=== PATIENT | female | born 1950 | race Caucasian/White ===

== ENCOUNTER 2017-02-19 18:59 | Inpatient (IN) | payer OTHER ==
[2017-02-19 20:29] LABS: Troponin I Less than 0.010 ng/mL (< 0.028)
--- NOTE | 2017-02-19 22:04 | CT ---
CT OF THE BRAIN WITHOUT CONTRAST: 02/19/17 COMPARISON: None. HISTORY: High blood pressure and headache. TECHNIQUE: Multiple contiguous axial images were obtained in a CT of the brain without contrast. FINDINGS: The brain is normal in morphology and attenuation without focal lesions or confluent areas of infarc tion. There is no evidence of hydrocephalus, intracranial hemorrhage, or extra-axial fluid collectio n. The calvarium and overlying soft tissues are unremarkable. The visualized paranasal sinuses and mast oid air cells are well aerated. IMPRESSION: No evidence of acute intracranial abnormality. POS: [facility]
[2017-02-19] MEDS ORDERED: diphenhydrAMINE HCl 50 MG/ML 1 ML VIAL ONE ×2 (22:10→22:23)
[2017-02-19] MEDS ORDERED: Acetaminophen 500 MG TAB ONE ×2 (22:10→22:12)
[2017-02-19] MEDS ORDERED: Ketorolac Tromethamine 30 MG/ML VIAL ONE (22:10)
[2017-02-19] MEDS ORDERED: methylPREDNISolone Sod Succ/PF 125 MG/2 ML VIAL ONE ×2 (22:10→22:23)
[2017-02-19] MEDS ORDERED: Promethazine HCl 25 MG/ML VIAL ONE (22:23)
[2017-02-19] MEDS ORDERED: Labetalol HCl 100 MG/20 ML VIAL ONE (23:24)
[2017-02-20] MEDS ORDERED: Magnesium Sulfate 2 GM/100 ML BAG ONE (01:12)
[2017-02-20 01:32] LABS: Troponin I Less than 0.010 ng/mL (< 0.028)
[2017-02-20] MEDS ORDERED: Ondansetron ODT 4 MG TAB SL PRN (01:49)
[2017-02-20] MEDS ORDERED: Acetaminophen 325 MG TAB PO PRN (01:49)
[2017-02-20] MEDS ORDERED: Ondansetron HCl/PF 4 MG/2 ML Vial IVP PRN (01:49)
[2017-02-20] MEDS ORDERED: Guaifenesin DM 100-10/5 ML UDCUP PO PRN (02:36)
[2017-02-20] MEDS ORDERED: Dextrose 5% in Water 1,000 ML IV PRN (02:36)
[2017-02-20] MEDS ORDERED: Dextrose 50% Abboject 50 ML SYRINGE SLOW IVP PRN (02:36)
[2017-02-20] MEDS ORDERED: Sodium Chloride 0.9% 1,000 ML IV SCH (02:36)
[2017-02-20] MEDS ORDERED: Aspirin 325 MG TAB PO SCH (02:45)
[2017-02-20 03:11] VITALS: BMI 25.3
--- NOTE | 2017-02-20 04:50 | PDOC.EVN ---
Event Note - Event Note Event Note: Pt has hypertensive urgency with recordings of 190/110 at 4.45am. Change status to inpatient. Hold stress test until htn is better controlled. Continue all the medications that are ordered for now.
[2017-02-20 04:59] LABS: #Lymphocytes 0.7 thou/uL (1.20-3.40); #Neutrophils 5.8 thou/uL (1.40-6.50); %Basophils 0.2 % (0.0-1.0); %Eosinophils 0.5 % (0.0-10.0); %Lymphocytes 10.3 % (21.0-51.0); %Monocytes 0.5 % (0.0-10.0); White Blood Cell (WBC) Count 6.5 thou/uL (4.8-10.8)
[2017-02-20] MEDS: HumaLOG 300 UNITS/3 ML VIAL SC PRN ×4 (04:59→20:46)
--- NOTE | 2017-02-20 05:15 | HP ---
REASON FOR ADMISSION: Chest pain, uncontrolled hypertension. HISTORY OF PRESENT ILLNESS: The patient gives history of having difficulty controlling her blood pressure from the last 2 months. Her medications were doubled a week and a half back. She also developed right-sided chest pain with radiation to the retrosternal area around 3:00 p.m. yesterday. She called her doctor's office and was asked to go to the emergency room. The patient has had a prior stress test done in 1991, which was negative as far she could remember. She has dry cough, but no expectoration. No complaints of fever, palpitations , PND or orthopnea. PAST MEDICAL/SURGICAL HISTORY: History of hypertension, diabetes mellitus type 2, hysterectomy, bladder lift surgery, dyslipidemia. CURRENT MEDICATIONS: Metoprolol 50 mg twice daily, lisinopril 40 mg twice daily , metformin 500 mg p.o. twice daily. ALLERGIES: CODEINE and PENICILLIN. PERSONAL HISTORY: Smokes half pack a day, does not abuse alcohol or drugs. FAMILY HISTORY: Mother at the age of 78 years. She has had history of stroke and colon cancer. Father in his 90s and had history of COPD and coronary artery disease. REVIEW OF SYSTEMS: The following complete review of systems was negative, unless otherwise mentioned in the HPI or below: Constitutional: Weight loss or gain, ability to conduct usual activities. Skin: Rash, itching. Eyes: Double vision, pain. ENT/Mouth: Nose bleeding, neck stiffness, pain, tenderness. Cardiovascular: Palpitations, dyspnea on exertion, orthopnea. Respiratory: Shortness of breath, wheezing, cough, hemoptysis, fever or night sweats. Gastrointestinal: Poor appetite, abdominal pain, heartburn, nausea, vomiting, constipation, or diarrhea. Genitourinary: Urgency, frequency, dysuria, nocturia. Musculoskeletal: Pain, swelling. Neurologic/Psychiatric: Anxiety, depression. Allergy/Immunologic: Skin rash, bleeding tendency. PHYSICAL EXAMINATION: GENERAL: The patient is a 66-year-old female who is currently not in any acute distress. VITAL SIGNS: Blood pressure 176/74, pulse 66 per minute, respiratory rate 18 per minute, temperature 98 degrees Fahrenheit, saturating 93% on room air. NECK: Supple, no elevated JVD. HEENT: Eyes; extraocular muscles intact. Pupils reacting to light. Oral cavity; mucous membranes are moist. No exudates or congestion. CARDIOVASCULAR: S1, S2 heard. Regular rhythm. RESPIRATORY: Air entry 2+ bilateral. No rales or rhonchi. ABDOMEN: Soft, bowel sounds heard. No tenderness, rigidity or guarding. EXTREMITIES: No peripheral edema or calf tenderness. VASCULAR SYSTEM: Peripheral pulses 2+ bilateral, no ischemic ulcerations or gangrene. CENTRAL NERVOUS SYSTEM: No gross focal deficits seen. Patient is alert, awake , oriented x3. PSYCHIATRIC: The patient's mood is euthymic. No hallucinations or delusions. LABORATORY AND X-RAY FINDINGS: EKG done shows normal sinus rhythm at 61 beats per minute, H\T\H 13 and 39, platelet count 300, MCV is 88. White count of 8. Electrolytes are stable. BUN 20, creatinine 1.0. Glucose 177. Troponin x2 is negative. CK-MB 2.7. BNP is 38. CT brain shows no acute intracranial abnormality. Chest x-ray done shows no acute cardiopulmonary abnormalities. CLINICAL IMPRESSION AND PLAN: The patient will be under observation on telemetry for uncontrolled hypertension with chest pain. We will try to optimize her blood pressure medications. We will continue her lisinopril at 20 mg twice daily, Lopressor 25 mg twice daily, Procardia-XL 60 mg daily. She will also be on nitro paste half inch q.8 hourly. The patient will follow ACS evidence based protocol. We will obtain an echo with 2D Doppler for LV function. We will also obtain ultrasound of the kidneys to rule out renal artery stenosis with resistive indices. We will continue to closely monitor her on telemetry. If the patient's blood pressure were not be controlled, then she will be switched over to inpatient status. We will continue to closely monitor her. MICAELA
[2017-02-20 05:16] LABS: Anion Gap 12 mmol/L (10-20); BUN (Urea Nitrogen) 15 mg/dL (9.8-20.1); Calc. Creatinine Clearance 78 mL/min (70-130); Calcium 9.7 mg/dL (7.8-10.44); Carbon Dioxide 25 mmol/L (23-31); Chloride 108 mmol/L (98-107); Cholesterol 206 mg/dl (< 200 Desired); Estimated GFR-MDRD 72; LDL Cholesterol, Calculated 139 mg/dL
[2017-02-20] MEDS ORDERED: Nitroglycerin 2% Ointment 1 INCH/1 GM Packet TOP SCH (06:00)
[2017-02-20 07:47] LABS: Hemoglobin A1c 7.8 % (4.0-6.0)
[2017-02-20] MEDS: Famotidine 20 MG TAB PO SCH ×2 (09:18→20:44)
[2017-02-20] MEDS: Aspirin 325 MG TAB PO SCH (09:18)
[2017-02-20] MEDS: Docusate 100 MG CAP PO SCH ×2 (09:18→20:45)
[2017-02-20] MEDS: Lisinopril 20 MG TAB PO SCH ×2 (09:19→20:44)
[2017-02-20] MEDS: Pravastatin Sodium 20 MG TAB PO SCH (09:19)
[2017-02-20] MEDS: Metoprolol Tartrate 25 MG TAB PO SCH ×2 (09:19→20:44)
[2017-02-20] MEDS: NIFEdipine XL 60 MG TAB PO SCH (09:19)
[2017-02-20] MEDS: Enoxaparin Sodium 40 MG/0.4 ML SYRINGE SC SCH (09:20)
[2017-02-20] MEDS: Acetaminophen 325 MG TAB PO PRN ×2 (09:30→14:43)
--- NOTE | 2017-02-20 11:00 | ULT ---
RENAL ULTRASOUND: 02/20/2017 HISTORY: Hypotension. TECHNIQUE: Multiple longitudinal and transverse images of the kidneys and bladder are obtained using a Multi-He rtz curvilinear transducer. Real-time, color-flow, and spectral wave-form Doppler analysis is used to evaluate the kidneys. FINDINGS: The right kidney measures 10.7 and the left kidney 11.6 cm, from pole to pole. No evidence of renal parenchymal mass is seen. There is a cortical cyst seen in the mid pole of the right kidney, measu ring 10 x 8 mm. No other renal or parenchymal masses or lesions seen. Spectral wave-form Doppler a nalysis evaluation of the right and left renal arteries demonstrate a resistive index of 0.65 in the right kidney and 0.5 in the left. No definite evidence of renal artery stenosis seen. The bladder is unremarkable. IMPRESSION: Small cortical cyst, mid pole, right kidney. Otherwise, unremarkable renal ultrasound. No evidence of renal artery stenosis seen on sonography. POS: [facility]
--- NOTE | 2017-02-20 11:21 | PDOC.PN ---
- Subjective Encounter Start Date: 02/20/17 Encounter Start Time: 11:19 Subjective: feels better but still on and off FOX and Chest discomfort w high BP - Objective Resuscitation Status: Resuscitation Status FULL:Full Resuscitation MAR Reviewed: Yes Vital Signs & Weight: Vital Signs (12 hours) Temp Pulse Resp BP BP Pulse Ox 02/20/17 08:00 97.7 F 82 16 178/81 H 95 02/20/17 06:45 77 173/76 H 02/20/17 04:40 98.2 F 79 16 196/110 H 95 02/20/17 01:45 98.1 F 70 18 179/90 H 95 Weight Weight 152 lb 8 oz I&O: 02/19/17 02/20/17 02/21/17 06:59 06:59 06:59 Intake Total 300 360 Balance 300 360 Result Diagrams: 02/20/17 04:44 02/20/17 04:43 Additional Labs: Accuchecks 02/20/17 04:43 POC Glucose 238 H Laboratory Tests 02/20/17 04:44 Hemoglobin A1c 7.8 H Laboratory Tests 02/19/17 02/19/17 02/20/17 17:12 19:58 00:51 Troponin I 0.015 Less than 0.010 Less than 0.010 Triglycerides Cholesterol LDL Cholesterol, Calc HDL Cholesterol 02/20/17 04:43 Troponin I Triglycerides 78 Cholesterol 206 H LDL Cholesterol, Calc 139 HDL Cholesterol 51 Radiology Reviewed by me: Yes (renal US- NL.no CITLALI) Phys Exam - Physical Examination Constitutional: NAD HEENT: PERRLA, moist MMs, sclera anicteric, oral pharynx no lesions Neck: no nodes, no JVD, supple, full ROM Respiratory: no wheezing, no rales, no rhonchi, clear to auscultation bilateral Cardiovascular: RRR, no significant murmur, no rub, gallop Gastrointestinal: soft, non-tender, no distention, positive bowel sounds Musculoskeletal: no edema, pulses present Neurological: non-focal, normal sensation, moves all 4 limbs Psychiatric: normal affect, A&O x 3 Skin: no rash Dx/Plan (1) Hypertensive urgency Code(s): I16.0 - HYPERTENSIVE URGENCY Status: Acute (2) Chest pain Code(s): R07.9 - CHEST PAIN, UNSPECIFIED Status: Resolved (3) DMII (diabetes mellitus, type 2) Status: Chronic Qualifiers: Diabetes mellitus complication status: with hyperglycemia (4) HLD (hyperlipidemia) Code(s): E78.5 - HYPERLIPIDEMIA, UNSPECIFIED Status: Chronic - Plan out of bed/ambulate, DVT proph w/SCDs BP better controlled. renal US without Citlali.ECHO pending. -: adjust med .DC IVF.start Diet. -: CP likley d/t uncontrolled HTN. Troponin negative X3. -: cont. ISS.Titrate Nitro patch off & monitor. -: If CP returns,will do stress test tomorrow.AM labs * . Review of Systems - Review of Systems Constitutional: Malaise, Other (headache) Respiratory: negative: Cough, Dry, Shortness of Breath, Hemoptysis, SOB with Excertion, Pleuritic Pain, Sputum, Wheezing Cardiovascular: negative: Chest Pain, Palpitations, Orthopnea, Paroxysmal Noc. Dyspnea, Edema, Light Headedness, Other Gastrointestinal: negative: Nausea, Vomiting, Abdominal Pain, Diarrhea, Constipation, Melena, Hematochezia, Other Genitourinary: negative: Dysuria, Frequency, Incontinence, Hematuria, Retention , Other Musculoskeletal: negative: Neck Pain, Shoulder Pain, Arm Pain, Back Pain, Hand Pain, Leg Pain, Foot Pain, Other Neurological: negative: Weakness, Numbness, Incoordination, Change in Speech, Confusion, Seizures, Other - Medications/Allergies Allergies/Adverse Reactions: Allergies Allergy/AdvReac Type Severity Reaction Status Date / Time codeine Allergy Verified 02/20/17 02:18 Penicillins Allergy Verified 02/20/17 02:18 Medications: Current Medications Acetaminophen (Tylenol) 650 mg PO Q4H PRN PRN Reason: Headache/Fever or Pain Last Admin: 02/20/17 09:30 Dose: 650 mg Aspirin (Aspirin) 325 mg PO QAM-[facility] Last Admin: 02/20/17 09:18 Dose: 325 mg Dextrose/Water (Dextrose 50%) 25 gm SLOW IVP PRN PRN PRN Reason: Hypoglycemia Docusate Sodium (Colace) 100 mg PO BID [facility] Last Admin: 02/20/17 09:18 Dose: 100 mg Enoxaparin Sodium (Lovenox) 40 mg SC 0900 [facility] Last Admin: 02/20/17 09:20 Dose: Not Given Famotidine (Pepcid) 20 mg PO BID [facility] Last Admin: 02/20/17 09:18 Dose: 20 mg Glucagon (Glucagon) 1 mg IM PRN PRN PRN Reason: Hypoglycemia Guaifenesin/Dextromethorphan (Robitussin Dm) 15 ml PO Q4H PRN PRN Reason: Cough Dextrose/Water (D5w) 1,000 mls @ 0 mls/hr IV .Q0M PRN; As Directed PRN Reason: Hypoglycemia Insulin Human Lispro (Humalog) 0 units SC .MODERATE SLIDING SC PRN PRN Reason: Moderate Correctional Scale Last Admin: 02/20/17 04:59 Dose: 4 unit Lisinopril (Zestril) 20 mg PO BID [facility] Last Admin: 02/20/17 09:19 Dose: 20 mg Metoprolol Tartrate (Lopressor) 25 mg PO BID [facility] Last Admin: 02/20/17 09:19 Dose: 25 mg Nifedipine (Procardia Xl) 60 mg PO DAILY [facility] Last Admin: 02/20/17 09:19 Dose: 60 mg Nitroglycerin (Nitro-Bid 2% Ointment) 0.5 inch TOP Q8HR [facility] Last Admin: 02/20/17 05:04 Dose: 0.5 inch Pneumococcal Polyvalent Vaccine (Pneumovax 23) 0.5 ml IM .ONCE ONE Stop: 02/21/17 09:01 Pravastatin Sodium (Pravachol) 20 mg PO DAILY [facility] Last Admin: 02/20/17 09:19 Dose: 20 mg
[2017-02-21] MEDS ORDERED: Sodium Chloride 0.9% 10 ML ONE (08:07)
[2017-02-21] MEDS: Docusate 100 MG CAP PO SCH (09:09)
[2017-02-21] MEDS: Aspirin 325 MG TAB PO SCH (09:09)
[2017-02-21] MEDS: Pravastatin Sodium 20 MG TAB PO SCH (09:09)
[2017-02-21] MEDS: Lisinopril 20 MG TAB PO SCH (09:09)
[2017-02-21] MEDS: Acetaminophen 325 MG TAB PO PRN (09:10)
[2017-02-21] MEDS: Metoprolol Tartrate 25 MG TAB PO SCH (09:10)
[2017-02-21] MEDS: Famotidine 20 MG TAB PO SCH (09:10)
[2017-02-21] MEDS: NIFEdipine XL 60 MG TAB PO SCH (09:10)
[2017-02-21] MEDS: Enoxaparin Sodium 40 MG/0.4 ML SYRINGE SC SCH (09:11)
--- NOTE | 2017-02-21 11:26 | PDOC.PN ---
- Subjective Encounter Start Date: 02/21/17 Encounter Start Time: 11:24 Subjective: feels better but still some headache.eager to go home -: no chest pain/SOB.no N/V - Objective Resuscitation Status: Resuscitation Status FULL:Full Resuscitation MAR Reviewed: Yes Vital Signs & Weight: Vital Signs (12 hours) Temp Pulse Resp BP BP Pulse Ox 02/21/17 09:10 64 178/74 H 02/21/17 09:09 178/74 H 02/21/17 07:50 97.2 F L 64 18 178/74 H 97 02/21/17 04:00 98.2 F 63 18 141/66 H 98 Weight Weight 185 lb 12.8 oz I&O: 02/20/17 02/21/17 02/22/17 06:59 06:59 06:59 Intake Total 300 2300 Output Total 2400 Balance 300 -100 Result Diagrams: 02/20/17 04:44 02/20/17 04:43 Additional Labs: Accuchecks 02/21/17 02/20/17 02/20/17 05:51 20:20 17:31 POC Glucose 119 H 270 H 210 H 02/20/17 11:07 POC Glucose 240 H Radiology Reviewed by me: Yes Phys Exam - Physical Examination Constitutional: NAD HEENT: PERRLA, moist MMs, TM's clear, oral pharynx no lesions Neck: no nodes, no JVD, supple, full ROM Respiratory: no wheezing, no rales, no rhonchi, clear to auscultation bilateral Cardiovascular: RRR, no significant murmur Gastrointestinal: soft, non-tender, no distention, positive bowel sounds Musculoskeletal: no edema, pulses present Neurological: non-focal, normal sensation, moves all 4 limbs Psychiatric: normal affect, A&O x 3 Skin: no rash Dx/Plan (1) Hypertensive urgency Code(s): I16.0 - HYPERTENSIVE URGENCY Status: Resolved (2) Chest pain Code(s): R07.9 - CHEST PAIN, UNSPECIFIED Status: Resolved (3) DMII (diabetes mellitus, type 2) Status: Chronic Qualifiers: Diabetes mellitus complication status: with hyperglycemia (4) HLD (hyperlipidemia) Code(s): E78.5 - HYPERLIPIDEMIA, UNSPECIFIED Status: Chronic - Plan DVT proph w/SCDs BP better controlled. ECHO not done yet but Pt wants to go home -: wi;ll get ECHo as an OP w PCP follow up. -: EKG/troponin negative for ischemia.Hemodynamically stable. -: will DC home .Scrpits given for Procrdia * . Review of Systems - Review of Systems Constitutional: negative: Fever, Chills, Sweats, Weakness, Malaise, Other Respiratory: negative: Cough, Dry, Shortness of Breath, Hemoptysis, SOB with Excertion, Pleuritic Pain, Sputum, Wheezing Cardiovascular: negative: Chest Pain, Palpitations, Orthopnea, Paroxysmal Noc. Dyspnea, Edema, Light Headedness, Other Gastrointestinal: negative: Nausea, Vomiting, Abdominal Pain, Diarrhea, Constipation, Melena, Hematochezia, Other Genitourinary: negative: Dysuria, Frequency, Incontinence, Hematuria, Retention , Other Musculoskeletal: negative: Neck Pain, Shoulder Pain, Arm Pain, Back Pain, Hand Pain, Leg Pain, Foot Pain, Other Neurological: negative: Weakness, Numbness, Incoordination, Change in Speech, Confusion, Seizures, Other - Medications/Allergies Allergies/Adverse Reactions: Allergies Allergy/AdvReac Type Severity Reaction Status Date / Time codeine Allergy Verified 02/20/17 02:18 Penicillins Allergy Verified 02/20/17 02:18 Medications: Current Medications Acetaminophen (Tylenol) 650 mg PO Q4H PRN PRN Reason: Headache/Fever or Pain Last Admin: 02/21/17 09:10 Dose: 650 mg Aspirin (Aspirin) 325 mg PO QAM-[facility] Last Admin: 02/21/17 09:09 Dose: 325 mg Dextrose/Water (Dextrose 50%) 25 gm SLOW IVP PRN PRN PRN Reason: Hypoglycemia Docusate Sodium (Colace) 100 mg PO BID [facility] Last Admin: 02/21/17 09:09 Dose: 100 mg Enoxaparin Sodium (Lovenox) 40 mg SC 0900 [facility] Last Admin: 02/21/17 09:11 Dose: 40 mg Famotidine (Pepcid) 20 mg PO BID [facility] Last Admin: 02/21/17 09:10 Dose: 20 mg Glucagon (Glucagon) 1 mg IM PRN PRN PRN Reason: Hypoglycemia Guaifenesin/Dextromethorphan (Robitussin Dm) 15 ml PO Q4H PRN PRN Reason: Cough Hydralazine HCl (Apresoline) 10 mg SLOW IVP Q4H PRN PRN Reason: SBP>170 Last Admin: 02/20/17 12:57 Dose: 10 mg Dextrose/Water (D5w) 1,000 mls @ 0 mls/hr IV .Q0M PRN; As Directed PRN Reason: Hypoglycemia Insulin Human Lispro (Humalog) 0 units SC .MODERATE SLIDING SC PRN PRN Reason: Moderate Correctional Scale Last Admin: 02/20/17 20:46 Dose: 4 unit Lisinopril (Zestril) 20 mg PO BID [facility] Last Admin: 02/21/17 09:09 Dose: 20 mg Metoprolol Tartrate (Lopressor) 25 mg PO BID [facility] Last Admin: 02/21/17 09:10 Dose: 25 mg Nifedipine (Procardia Xl) 60 mg PO DAILY [facility] Last Admin: 02/21/17 09:10 Dose: 60 mg Pravastatin Sodium (Pravachol) 20 mg PO DAILY [facility] Last Admin: 02/21/17 09:09 Dose: 20 mg
[2017-02-21 11:45] VITALS: TEMP 98
[2017-02-21 13:08] VITALS: BP 150/70
--- NOTE | 2017-02-21 20:39 | DIS ---
DATE OF ADMISSION: 02/19/2017 DATE OF DISCHARGE: 02/21/2017 CONDITION AT THE TIME OF DISCHARGE: Stable and improved. DISCHARGE DIAGNOSES: 1. Hypertensive urgency. 2. Headache secondary to #1. 3. Chest pain secondary to #1, resolved. 4. Diabetes mellitus, type 2. 5. Dyslipidemia. PRIMARY CARE PHYSICIAN: Dr. Leticia Jenkins. DISCHARGE MEDICATIONS: Lisinopril 20 mg p.o. b.i.d., metoprolol tartrate 25 mg p.o. b.i.d. NEW MEDICATIONS: 1. Nifedipine 60 mg daily. 2. Pravastatin 20 mg daily. PROCEDURES DONE IN THE HOSPITAL: Include, 1. CT scan of the brain, which is negative for any acute intracranial abnormality. 2. Renal ultrasound bilaterally, which is negative for any renal artery stenosis with Doppler. She has a small right-sided cortical renal cyst, otherwise unremarkable. ADMISSION HISTORY: Ms. Palomino is a very pleasant 66-year-old female with past medical history of hyp ertension, diabetes, and dyslipidemia, who presented to the ER with complaints of chest pain and dif ficulty controlling blood pressure for the last 2 months. The patient upon presentation had a blood pressure of 176/74. Her EKG showed normal sinus rhythm without acute changes. Her cardiac enzymes are negative x2. CT scan of the brain did not show any acute abnormality and the chest x-ray showe d no acute cardiopulmonary abnormality. She was admitted under observation status for chest pain, l ikely related to her uncontrolled hypertension. She was restarted on her home medication and Procar mary was added. She was also started on nitroglycerin patch. Please see admission history and physi rafael for further details. The patient was on the telemetry monitoring. HOSPITAL COURSE: The patient's blood pressure was under reasonable control after few hours. Nitrog lycerin patch was discontinued and her blood pressure remained stable. It did improve somewhat up t o 140s/60s range, but was still trending up and down as high as 178/74. Her renal ultrasound was do ne with Doppler to rule out renal artery stenosis as a cause of uncontrolled hypertension: it was ne gative for the same. An echocardiogram was also ordered, but unfortunately it was not done in time and the patient did not want to wait anymore. It was discussed with her and then she will get it do ne as an outpatient and follow the results of that with her primary care physician. Her serial card iac enzymes were trended and remained negative. There were no EKG changes. Her hemoglobin A1c was elevated at 7.8 and her serum lipid panel showed cholesterol at 208 with LDL of 139. Dietary discre tion was advised to the patient. She was seen and examined prior to discharge and is hemodynamically stable and will be discharged ho ne and prescription for Procardia was given and she will resume her rest of her home medications. D ischarge plan was discussed with patient, who verbalized understanding. Please see hospitalist progress note from today's date for further detail including [id number] int eraction.
== END 2017-02-21 13:56 | disposition home or self-care (01) | DRG 305 ==
LOC: ERS 18:59 → 2SW 23:50 → OBSVTOIN 23:50 → 2NO 02-20 11:42
PROVIDERS: ADMIT Internal Medicine; ATTEND Internal Medicine
DX: I16.0 Hypertensive urgency (principal); E11.65 Type 2 diabetes mellitus with hyperglycemia; I10 Essential (primary) hypertension; E78.5 Hyperlipidemia, unspecified; Z79.84 Long term (current) use of oral hypoglycemic drugs; Z88.0 Allergy status to penicillin; Z88.5 Allergy status to narcotic agent; F17.210 Nicotine dependence, cigarettes, uncomplicated
CPT/HCPCS: 36415; 36416; 70450; 76700; 76770; 80048; 80061; 83036; 84484; 85025; 90471; 90732; 93005; 94760; 96361; 96365; 96375; A4216; G0009; J0360; J1200; J1650; J1885; J2550; J2930; J3475

== ENCOUNTER 2019-02-12 23:03 | Emergency (ER) | payer OTHER, MEDICARE ==
[2019-02-12] MEDS ORDERED: Ketorolac Tromethamine 30 MG/ML VIAL ONE (23:46)
[2019-02-12] MEDS ORDERED: Acetaminophen 500 MG TAB ONE (23:46)
[2019-02-12 23:48] LABS: #Eosinphils 0.1 thou/uL (0.0-0.7); #Lymphocytes 2.2 thou/uL (1.20-3.40); #Monocytes 0.6 thou/uL (0.11-0.59); #Neutrophils 7.2 thou/uL (1.40-6.50); %Basophils 0.4 % (0.0-1.0); %Eosinophils 0.8 % (0.0-10.0); %Lymphocytes 21.7 % (21.0-51.0); %Monocytes 6.2 % (0.0-10.0); %Neutrophils 70.8 % (42.0-75.0); Hemoglobin 14.3 g/dL (12.0-16.0); Mean Corpuscular HGB CONC 35.1 g/dL (32.0-36.0); Mean Corpuscular Hemoglobin 30.2 pg (27.0-31.0); Mean Corpuscular Volume 86.1 fL (78.0-98.0); Mean Platelet Volume 6.9 fL (7.4-10.4); Platelet Count 345 thou/uL (130-400); RBC Distribution Width 11.9 % (11.5-14.5); Red Blood Cell (RBC) Count 4.73 mill/uL (4.20-5.40); White Blood Cell (WBC) Count 10.2 thou/uL (4.8-10.8)
[2019-02-13 00:04] LABS: ALT (SGPT) 17 U/L (8-55); AST (SGOT) 18 U/L (5-34); Albumin 4.3 g/dL (3.4-4.8); Alkaline Phosphatase 87 U/L (40-150); Anion Gap 16 mmol/L (10-20); BUN (Urea Nitrogen) 22 mg/dL (9.8-20.1); Bilirubin, Total 0.6 mg/dL (0.2-1.2); CK (CPK) 127 U/L (29-168); Calc. Creatinine Clearance 0 mL/min (70-130); Calcium 10.1 mg/dL (7.8-10.44); Carbon Dioxide 23 mmol/L (23-31); Chloride 99 mmol/L (98-107); Estimated GFR-MDRD 45; Globulin 2.7 g/dL (2.4-3.5); Glucose 127 mg/dL (80-115); Potassium 3.8 mmol/L (3.5-5.1); Sodium 134 mmol/L (136-145)
== END 2019-02-13 02:11 | disposition home or self-care (01) ==
LOC: ERS 23:03
DX: E86.0 Dehydration (principal); K08.89 Other specified disorders of teeth and supporting structures; E11.9 Type 2 diabetes mellitus without complications; I10 Essential (primary) hypertension; E78.00 Pure hypercholesterolemia, unspecified; F17.210 Nicotine dependence, cigarettes, uncomplicated
CPT/HCPCS: 36415; 80053; 82550; 84484; 85025; 93005; 96361; 96374; J1885

== ENCOUNTER 2019-06-14 07:58 | Observation (INO) | payer OTHER, MEDICARE ==
--- NOTE | 2019-06-14 08:19 | RAD ---
Portable frontal chest radiograph: 06/14/2019 COMPARISON: 02/19/2017 HISTORY: Worsening chest pain with shortness of breath FINDINGS: Lungs are clear. Heart and mediastinal contours appear within normal limits. Mild increased linear interstitial density with pulmonary hyperinflation. IMPRESSION: No acute findings.
[2019-06-14 08:22] LABS: #Eosinphils 0.2 thou/uL (0.0-0.7); #Lymphocytes 2.1 thou/uL (1.20-3.40); #Monocytes 0.6 thou/uL (0.11-0.59); #Neutrophils 4.3 thou/uL (1.40-6.50); %Basophils 0.6 % (0.0-1.0); %Eosinophils 3.3 % (0.0-10.0); %Lymphocytes 28.7 % (21.0-51.0); %Monocytes 8.1 % (0.0-10.0); %Neutrophils 59.3 % (42.0-75.0); Hemoglobin 14.8 g/dL (12.0-16.0); Mean Corpuscular HGB CONC 33.7 g/dL (32.0-36.0); Mean Corpuscular Hemoglobin 28.8 pg (27.0-31.0); Mean Corpuscular Volume 85.5 fL (78.0-98.0); Mean Platelet Volume 7.1 fL (7.4-10.4); Platelet Count 337 thou/uL (130-400); RBC Distribution Width 11.8 % (11.5-14.5); Red Blood Cell (RBC) Count 5.15 mill/uL (4.20-5.40); White Blood Cell (WBC) Count 7.2 thou/uL (4.8-10.8)
[2019-06-14] MEDS ORDERED: Lorazepam 1 MG TAB ONE (08:25)
[2019-06-14] MEDS ORDERED: Aspirin Chewable 81 MG TAB ONE (08:25)
[2019-06-14 08:53] LABS: ALT (SGPT) 18 U/L (8-55); AST (SGOT) 18 U/L (5-34); Albumin 4.2 g/dL (3.4-4.8); Alkaline Phosphatase 130 U/L (40-110); Anion Gap 11 mmol/L (10-20); BUN (Urea Nitrogen) 26 mg/dL (9.8-20.1); Bilirubin, Total 0.2 mg/dL (0.2-1.2); Calc. Creatinine Clearance 0 mL/min (70-130); Calcium 9.7 mg/dL (7.8-10.44); Carbon Dioxide 26 mmol/L (23-31); Chloride 106 mmol/L (98-107); Estimated GFR-MDRD 60; Globulin 3.3 g/dL (2.4-3.5); Glucose 137 mg/dL (80-115); Potassium 4.2 mmol/L (3.5-5.1); Protein, Total 7.5 g/dL (6.0-8.3); Sodium 139 mmol/L (136-145)
[2019-06-14] MEDS ORDERED: Nitroglycerin 2% Ointment 1 INCH/1 GM Packet ONE (09:43)
[2019-06-14] MEDS ORDERED: Acetaminophen 325 MG TAB PO PRN (11:18)
[2019-06-14] MEDS ORDERED: Ondansetron PF 4 MG/2 ML Vial IVP PRN (11:18)
[2019-06-14] MEDS ORDERED: Ondansetron ODT 4 MG TAB SL PRN (11:18)
[2019-06-14 11:26] VITALS: BMI 31.1
[2019-06-14] MEDS ORDERED: Nitroglycerin 0.4 MG TAB (25 Tab Bottle) PO PRN (11:57)
[2019-06-14] MEDS ORDERED: HumaLOG 300 UNITS/3 ML VIAL SC PRN (12:01)
[2019-06-14] MEDS ORDERED: Dextrose 5% in Water 1,000 ML IV PRN (12:01)
[2019-06-14] MEDS ORDERED: Dextrose 50% Abboject 50 ML SYRINGE SLOW IVP PRN (12:01)
--- NOTE | 2019-06-14 12:12 | PDOC.FPRHP ---
- History of Present Illness Chief Complaint: chest pain History of Present Illness: 68YOF with a PMH significant for HTN, HLD, non-insulin dependent DMII, and anxiety who presented to the ED with a CC of chest pain that has been ongoing since Friday AM. Reports when she was getting ready for work she developed R- sided pressure-like chest pain with radiation into her back and associated nausea, dizziness and blurry vision. States the pain is currently 5/10 in intensity and has been constant since its start on Friday but does fluctuate in intensity. Is exacerbated by stress and somewhat relieved by drinking water and apple cider vinegar. Patient states she was previously prescribed medications for HTN, HLD, and DMII but has not seen any physician in at least 1 year. States it is hard to keep appointments with her job as they always change her hours. Also reports a h/o anxiety and depression and was anxious-appearing on exam & reports she was treated for anxiety previously in [place] but cannot recall the name of the medication she was on. ED Course: 324mg ASA, Ativan 1mg, nitrobid 1 inch applied topically - Allergies/Adverse Reactions Allergies Allergy/AdvReac Type Severity Reaction Status Date / Time codeine Allergy Verified 06/14/19 11:09 Penicillins Allergy Verified 06/14/19 11:09 - Home Medications Medication Instructions Recorded Confirmed Type Lisinopril 1 tab PO DAILY 02/20/17 06/14/19 History Metoprolol Tartrate 1 tab PO BID 02/20/17 06/14/19 History Pravastatin Sodium [Pravachol] 1 tab PO DAILY 02/20/17 06/14/19 History metFORMIN HCl 1 tab PO BID 02/20/17 06/14/19 History NIFEdipine [Procardia XL] 60 mg PO DAILY #30 tab 02/21/17 06/14/19 Rx - History PMHx: HLD, HTN, DMII, anxiety, h/o B/L DVTs in LEs PSHx: hysterectomy, bladder surgery x2 for prolapse FHx: Mother- CVA & AR in 60s; from colon CA Brother- from colon CA Father- heart problems, COPD Social: Smoked since age 22 but never more than 1ppd. No EtOH or drugs. - Review of Systems General: denies: fever/chills, weight/appetite/sleep changes Eyes: reports: vision changes. denies: eye pain ENT: denies: nasal congestion, rhinorrhea Respiratory: denies: cough, shortness of breath Cardiovascular: reports: chest pain Gastrointestinal: reports: nausea, constipation. denies: vomiting, diarrhea, abdominal pain Genitourinary: denies: dysuria, polyuria Skin: denies: rashes, lesions Musculoskeletal: reports: pain, arthritis/arthralgias Neurological: reports: numbness. denies: weakness Psychological: reports: anxiety. denies: depression - Vital signs BP: 202/94 HR: 67 RR: 18 Tmax: 98.7F Pox: 97% on RA Wt: 82.418 kg - Physical Exam Constitutional: NAD, well developed HEENT: normocephalic and atraumatic, conjunctiva clear, grossly normal vision, grossly normal hearing, MMM, oropharynx clear Neck: supple, FROM Chest: other (TTP) Heart: RRR, normal S1/S2, no murmurs/rubs/gallops, pulses present, no edema Lungs: CTAB, no respiratory distress, good air movement, no rales/rhonchi, no wheezing Abdomen: soft, bowel sounds present, other (mild TTP in LUQ; no guarding or rebound noted) Musculoskeletal: normal structure, ROM grossly normal Neurological: no focal deficit, CN II-XII intact (grossly) Skin: no rash/lesions, good turgor Heme/Lymphatic: no unusual bruising or bleeding Psychiatric: normal mood and affect, good judgment and insight, intact recent and remote memory, other (anxious appearing) FMR H&P: Results - Labs Result Diagrams: 06/14/19 08:14 06/14/19 08:14 Lab results: WBC 7.2 thou/uL (4.8-10.8) 06/14/19 08:14 Hgb 14.8 g/dL (12.0-16.0) 06/14/19 08:14 Hct 44.0 % (36.0-47.0) 06/14/19 08:14 MCV 85.5 fL (78.0-98.0) 06/14/19 08:14 Plt Count 337 thou/uL (130-400) 06/14/19 08:14 Neutrophils % 59.3 % (42.0-75.0) 06/14/19 08:14 Sodium 139 mmol/L (136-145) 06/14/19 08:14 Potassium 4.2 mmol/L (3.5-5.1) 06/14/19 08:14 Chloride 106 mmol/L (98-107) 06/14/19 08:14 Carbon Dioxide 26 mmol/L (23-31) 06/14/19 08:14 BUN 26 mg/dL (9.8-20.1) H 06/14/19 08:14 Creatinine 0.94 mg/dL (0.6-1.1) 06/14/19 08:14 Glucose 137 mg/dL (80-115) H 06/14/19 08:14 Calcium 9.7 mg/dL (7.8-10.44) 06/14/19 08:14 Total Bilirubin 0.2 mg/dL (0.2-1.2) 06/14/19 08:14 AST 18 U/L (5-34) 06/14/19 08:14 ALT 18 U/L (8-55) 06/14/19 08:14 Alkaline Phosphatase 130 U/L (40-110) H 06/14/19 08:14 Serum Total Protein 7.5 g/dL (6.0-8.3) 06/14/19 08:14 Albumin 4.2 g/dL (3.4-4.8) 06/14/19 08:14 Laboratory Tests 06/14/19 08:14 Troponin I 0.026 - EKG Interpretation EKG: NSR. T wave inversions in leads V5 & V6. - Radiology Interpretation Chest x-ray Status: image reviewed by me, report reviewed by me (hyperinflation but no acute findings) FMR H&P: A/P - Problem List (1) Chest pain Current Visit: No Status: Acute Code(s): R07.9 - CHEST PAIN, UNSPECIFIED (2) Hypertensive emergency Current Visit: Yes Status: Acute Code(s): I16.1 - HYPERTENSIVE EMERGENCY (3) DMII (diabetes mellitus, type 2) Current Visit: No Status: Chronic Qualifiers: Diabetes mellitus complication status: with hyperglycemia (4) HLD (hyperlipidemia) Current Visit: No Status: Chronic Code(s): E78.5 - HYPERLIPIDEMIA, UNSPECIFIED (5) Hypertension Current Visit: Yes Status: Acute Code(s): I10 - ESSENTIAL (PRIMARY) HYPERTENSION (6) Anxiety Current Visit: Yes Status: Chronic Code(s): F41.9 - ANXIETY DISORDER, UNSPECIFIED - Plan 68YOF with a PMH significant for uncontrolled HTN, DMII, HLD & anxiety who presents for evaluation for chest pain with associated nausea, dizziness, and vision changes that have been ongoing since Friday. Hypertensive emergency: - Patient presented with an extremely elevated BP of 258/177 in the ED. Was given topical nitropaste but BP still elevated on the floor at 202/94. Will give a 1 time dose of 5mg of IV hydralazine and 10mg PO amlodipine and reassess. - Will hold off on stress testing until BP is better controlled. - PRN hydralazine to be given overnight. Typical chest pain, r/o AR: - Chest pain most likely 2/2 problem #1 but patient has a heart score of 5 based on history, EKG, and multiple risk factors. - EKG showed T wave inversions in leads V5-V6 but no ST elevation. Initial troponin negative at 0.026. Will continue to trend. - Patient reported being off all meds and not having seen a physician in at least 1 year so will further risk stratify and check an a1c & lipid panel. - Will also check a TSH given reported anxiety and constipation to r/o thyroid pathology as a potential source. - Will plan for a stress test once BP is better controlled. - SL nitro PRN for chest pain. DMII: - Reports not being on insulin and per chart review was only on maximum dose of metformin previously. Checking an A1c to assess diabetes control. Mild SSI w/ ACHS accuchecks for now. - Hypoglycemia protocol. HLD: - Checking a lipid panel. Will initiate statin therapy as indicated based on results. HTN: - Aware, patient in hypertensive emergency. See plan for #1. Anxiety: - Patient reports being previously treated for anxiety but cannot recall the name of the medication she was on. Needs good follow-up with her PCP to initiate anxiolytic maintenance therapy. - PRN hydroxyzine while inpatient. Dispo: Will admit to telelmetry obs and plan to undergo cardiac stress testing once BP is better controlled. Anticipated LOS no more than < 48 hours. IVFs: None Diet: NPO, meds with sips Abx: None DVT PPX: Lovenox GI PPX: None CODE STATUS: FULL FMR H&P: Upper Level - Plan Date/Time: 06/14/19 [id number] I, [], have evaluated this patient and agree with findings/plan as outlined by qa internship resident. Pertinent changes/additions are listed here. Addendum - Attending - Attending Attestation Date/Time: 06/14/19 6913 I personally evaluated the patient and discussed the management with Dr. Ochoa I agree with the History, Examination, Assessment and Plan documented above with any addition or exceptions noted below. HTN urgency with chest pain. Will treat BP. Trend trop. Monitor on tele. Stress in AM. Adjust home medications as needed. Evaluate other risk factors. Zehra
[2019-06-14] MEDS ORDERED: hydrALAZINE 20 MG/ML VIAL SLOW IVP PRN ×3 (12:20→20:42)
[2019-06-14] MEDS ORDERED: Amlodipine 10 MG TAB PO SCH (12:30)
[2019-06-14] MEDS ORDERED: hydrALAZINE 20 MG/ML VIAL SLOW IVP SCH (12:30)
[2019-06-14 13:01] LABS: Troponin I 0.029 ng/mL (< 0.028)
[2019-06-14 13:02] LABS: Hemoglobin A1c 6.8 % (4.0-6.0)
[2019-06-14 13:41] LABS: Cardiac Risk 4.4 (Less than 4.5)
[2019-06-14 17:39] LABS: Troponin I 0.016 ng/mL (< 0.028)
[2019-06-14] MEDS ORDERED: Acetaminophen 500 MG TAB PO PRN (20:44)
[2019-06-14] MEDS ORDERED: hydrOXYzine 25 MG TAB PO PRN (20:50)
[2019-06-14] MEDS ORDERED: Atorvastatin Calcium 40 MG TAB PO SCH (21:00)
[2019-06-14] MEDS: metFORMIN 500 MG TAB PO SCH (21:47)
--- NOTE | 2019-06-15 05:57 | PDOC.FM ---
- Subjective Subjective: NAEO. Patient reports that her CP has improved this AM. Denies any palpitations , SOB or N/V but doesn endorse a persistent light FOX and blurry vision. - Objective MAR Reviewed: Yes Vital Signs & Weight: Vital Signs (12 hours) Temp Pulse Resp BP BP Pulse Ox 06/15/19 02:24 97.8 F 70 16 174/74 H 97 06/14/19 21:47 79 18 178/74 H 96 06/14/19 20:09 76 188/84 H 06/14/19 19:10 97.7 F 76 20 188/84 H 95 Weight Weight 82.418 kg I&O: 06/13/19 06/14/19 06/15/19 06:59 06:59 06:59 Intake Total 960 Output Total 1200 Balance -240 Result Diagrams: 06/14/19 08:14 06/14/19 08:14 Phys Exam - Physical Examination Constitutional: NAD HEENT: moist MMs Neck: supple, full ROM Respiratory: no wheezing, no rales, no rhonchi, clear to auscultation bilateral Cardiovascular: RRR, no significant murmur Musculoskeletal: no edema, pulses present Neurological: non-focal, moves all 4 limbs Psychiatric: normal affect, A&O x 3 Skin: no rash, normal turgor Dx/Plan (1) Chest pain Code(s): R07.9 - CHEST PAIN, UNSPECIFIED Status: Acute (2) Hypertensive emergency Code(s): I16.1 - HYPERTENSIVE EMERGENCY Status: Acute (3) DMII (diabetes mellitus, type 2) Status: Chronic Qualifiers: Diabetes mellitus complication status: with hyperglycemia (4) HLD (hyperlipidemia) Code(s): E78.5 - HYPERLIPIDEMIA, UNSPECIFIED Status: Chronic (5) Hypertension Code(s): I10 - ESSENTIAL (PRIMARY) HYPERTENSION Status: Acute (6) Anxiety Code(s): F41.9 - ANXIETY DISORDER, UNSPECIFIED Status: Chronic - Plan Plan: 68YOF with a PMH significant for uncontrolled HTN, DMII, HLD & anxiety who presents for evaluation for chest pain with associated nausea, dizziness, and vision changes that have been ongoing since Friday. Hypertensive emergency: - Patient presented with an extremely elevated BP of 258/177 in the ED. Was given topical nitropaste but BP still elevated on the floor at 202/94. - Was given a 1 time dose of 5mg IV hydralazine & 10mg PO amlodipine & BP decreased to 170s. - Continued 10mg IV hydralazine Q4H PRN for SBP >180 overnight & patient did not require any doses but BPs still remained in the 170s systolic. - Will continue amlodipine & resume EVERTON-I therapy at 40mg lisinopril QD since patient has been off of it for over 1 year. Patient will need good follow-up outpatient for continued titration of BP meds. Counseled her on the importance of this. Atypical chest pain, r/o CO: - Chest pain most likely 2/2 problem #1 but patient has a heart score of 5 based on history, EKG, and multiple risk factors. - EKG showed T wave inversions in leads V5-V6 but no ST elevation. Troponin negative at 0.026--> 0.029--> 0.016. - Resting portion of nuclear stress completed yesterday. Will attempt second portion today. - Continue SL nitro PRN for chest pain. DMII: - A1c 6.8 on admission. Will resume metformin therapy at 500mg BID since patient has been off for 1 year. Continue mild SSI PRN. - ACHS accuchecks & Hypoglycemia protocol. - Diabetic education. HLD: - FLP significant for total cholesterol of 241 & LDL of 161 which are above goal , especially in setting of DMII. - Will start on atorvastatin 40mg HS. HTN, uncontrolled: - Aware, patient in hypertensive emergency. See plan for #1. - Will consider getting an ECHO while inpatient as patient may have some cardiac dysfunction due to severely uncontrolled BP. Anxiety: - Patient reports being previously treated for anxiety but cannot recall the name of the medication she was on. Needs good follow-up with her PCP to initiate anxiolytic maintenance therapy. - PRN hydroxyzine while inpatient. Dispo: Will undergo second portion of cardiac stress testing today & continue to monitor BPs closely w/ possible d/c later today pending stress results. Anticipated LOS no more than < 48 hours. IVFs: None Diet: NPO, meds with sips Abx: None DVT PPX: Lovenox GI PPX: None CODE STATUS: FULL Addendum - Attending - Attending Attestation Date/Time: 06/15/19 0005 I personally evaluated the patient and discussed the management with Dr. Ochoa. I agree with the History, Examination, Assessment and Plan documented above with any addition or exceptions noted below.
[2019-06-15] MEDS: metFORMIN 500 MG TAB PO SCH (08:22)
[2019-06-15] MEDS ORDERED: Amlodipine 10 MG TAB PO SCH (09:00)
[2019-06-15] MEDS ORDERED: Amlodipine 5 MG TAB PO SCH (09:00)
[2019-06-15] MEDS ORDERED: Lisinopril 10 MG TAB PO SCH ×2 (09:00→12:30)
[2019-06-15] MEDS ORDERED: Enoxaparin Sodium 40 MG/0.4 ML SYRINGE SC SCH (09:00)
[2019-06-15] MEDS ORDERED: FLU VACC TS2019-20(65YR UP)/PF 180 MCG/0.5 ML SYRINGE IM ONE (12:00)
[2019-06-15] MEDS ORDERED: Prevnar 13-Val Conj/PF 0.5 ML SYRINGE IM ONE (12:00)
--- NOTE | 2019-06-15 12:07 | NM ---
CARDIAC SPECT: CLINICAL HISTORY: 68-year-old female with chest pain, hypertension, diabetes, dyslipidemia, and deep venous thrombosis. TECHNIQUE: A myocardial perfusion scan was performed using the single isotope two day protocol with 31 mCi techn etium-99m sestamibi injected intravenously for both stress and rest images. Pharmacologic stress with Adenosine was monitored and interpreted by Dr. Hilton. FINDINGS: Fairly homogeneous tracer distribution is seen in the myocardial segments on stress and rest images w ithout fixed or reversible defects. GATED SPECT LVEF: 50%. WALL MOTION EXAM: Normal. IMPRESSION: Normal myocardial perfusion scan. POS: TPC
[2019-06-15 12:44] VITALS: TEMP 98.2
[2019-06-15] MEDS ORDERED: ADENOSINE 60 MG/20 ML VIAL ONE (13:15)
[2019-06-15 16:12] VITALS: BP 146/72
--- NOTE | 2019-06-15 19:41 | PDOC.BPN ---
- Brief Progress Note After extensively reviewing what medications patient would be discharged on and importance of outpatient follow-up for BP control, patient was agreeable with discharge plan and provided a good contact number for us to convey her ECHO results to. 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 Nursing staff then placed a referral to [facility] to assist her with being able to get her necessary medications upon discharge. At ~1735 nursing staff contacted [facility] again stating the patient decided to leave before the Resource center had stopped by because they have not been of much assistance previously. Nurse informed her about [facility] and patient stated she would try her best to get meds before Friday. Patient left before physicians were able to speak with her again.
--- NOTE | 2019-06-16 12:17 | DIS ---
DATE OF ADMISSION: 06/14/2019 DATE OF DISCHARGE: 06/15/2019 RESIDENT: Latasha Ochoa MD ADMITTING ATTENDING: Gordon Irvin MD DISCHARGE ATTENDING: Ayush Mata MD CONSULT: None. PROCEDURES: 1. Chest x-ray on 06/14/2019, which showed no acute findings. 2. Nuclear stress test on 06/14/2019, which showed normal myocardial perfusion. 3. Echocardiogram on 06/15/2019, which is notable for ejection fraction estimated at 55% to 60% with impaired relaxation compatible with diastolic dysfunction and mild tricuspid regurgitation. PRIMARY DIAGNOSES: 1. Hypertensive emergency. 2. Atypical chest pain suspected to be secondary to hypertensive emergency. SECONDARY DIAGNOSES: 1. Type 2 diabetes mellitus. 2. Hyperlipidemia. 3. Hypertension. 4. Anxiety. DISCHARGE MEDICATIONS: 1. Amlodipine 10 mg p.o. daily. 2. Atorvastatin 40 mg p.o. at bedtime. 3. Hydroxyzine 25 mg p.o. q.6 hours p.r.n. 4. Lisinopril 40 mg p.o. daily. 5. Metformin 500 mg p.o. b.i.d. DISCONTINUED MEDICATIONS: 1. 1000 mg p.o. b.i.d. 2. Pravastatin 20 mg p.o. daily. 3. Metoprolol tartrate 25 mg p.o. b.i.d. 4. Lisinopril 40 mg p.o. daily. 5. Nifedipine 60 mg p.o. daily. HOSPITAL COURSE: DISPOSITION: Stable. DISCHARGE INSTRUCTIONS: 1. Location: Home. 2. Diet: Heart healthy, low-sodium, diabetic diet. 3. Activity: Activity as tolerated, no restrictions. 4. Followup: The patient was instructed to establish care with a primary care provider in [place] as soon as possible, [employer] provider group contact information was provided upon discharge. In addition, [place] [facility] and physician contact information was also provided. Job ID: [id number]
--- NOTE | 2019-06-19 14:20 | EKG ---
Test Reason : Blood Pressure : / mmHG Vent. Rate : 078 BPM Atrial Rate : 078 BPM P-R Int : 184 ms QRS Dur : 082 ms QT Int : 354 ms P-R-T Axes : 049 -03 171 degrees QTc Int : 403 ms Normal sinus rhythm Possible Left atrial enlargement T wave abnormality, consider lateral ischemia Abnormal ECG Confirmed by MARY RON DO ([id number]), news copy editor JOSE JUAN PAZ ([id number]) on 06/19/2019 2:20:13 PM Referred By: Confirmed By:MARY RON DO
--- NOTE | 2019-06-22 14:54 | DIS ---
DATE OF ADMISSION: 06/14/2019 DATE OF DISCHARGE: 06/15/2019 ADMITTING ATTENDING: Gordon Irvin MD DISCHARGE ATTENDING: Ayush Mata MD. RESIDENT: Latasha Ochoa MD. CONSULTS: None. PROCEDURES: 1. Chest x-ray on 06/14/2019, which showed no acute findings. 2. Nuclear stress test obtained on 06/14/2019, which showed normal myocardial perfusion. 3. Echocardiogram on 06/15/2019, notable for an EF estimated at 55% to 60% with impaired relaxation compatible with diastolic dysfunction and mild tricuspid regurgitation. PRIMARY DIAGNOSES: 1. Hypertensive emergency. 2. Typical chest pain, most likely secondary to #1. 3. Heart failure with preserved ejection fraction of 55% to 60%. SECONDARY DIAGNOSES: 1. Hypertension, uncontrolled. 2. Szs-uylqynt-elcdlmevy type 2 diabetes mellitus. 3. Hyperlipidemia. 4. Anxiety. 5. Tobacco abuse. DISCHARGE MEDICATIONS: 1. Amlodipine 10 mg p.o. daily. 2. Atorvastatin 40 mg p.o. at bedtime. 3. Hydroxyzine 25 mg p.o. q.6 hours p.r.n. for anxiety. 4. Lisinopril 40 mg p.o. daily. 5. Metformin 500 mg p.o. b.i.d. DISCONTINUED MEDICATIONS: 1. Metformin 1000 mg p.o. b.i.d. 2. Pravastatin 20 mg p.o. daily. 3. Metoprolol 25 mg p.o. b.i.d. 4. Nifedipine 60 mg p.o. daily. HOSPITAL COURSE: The patient is a 68-year-old female with a past medical history significant for severely uncontrolled hypertension, hyperlipidemia, flh-wawqrqt-totmmjogm diabetes mellitus 2, and anxiety, who presented to the emergency department with a chief complaint of chest pain that had been occurring intermittently over the last 2-3 days. The patient reported that the pain initially started on Friday morning when she was getting ready for work. She endorsed right-sided pressure-like chest pain with radiation into her back with associated nausea, dizziness, and blurred vision. She reported exacerbation with stress and some relief with drinking water and apple cider vinegar. Note, the patient reports that she has been off all of her home medications and has not seen a physician for at least one year. On arrival to the emergency department, the patient was noted to be extremely hypertensive with blood pressure measured at 258/177. She was given 324 mg of aspirin, 1 mg of Ativan, and 1 inch of topical Nitro-Bid paste. Routine labs including a CBC, CMP, and troponin as well as a D-dimer and chest x-ray were obtained which were notable for an initial troponin I level of 0.026, which up-trended to 0.029 and eventually down to 0.016 over the course of her hospital stay. Her chest x-ray was unremarkable as noted above. An EKG was obtained as well which was notable for T-wave inversions in leads 3, V5 and V6, but no ST-elevation consistent with STEMI. Given the patient's elevated blood pressure and HEART score of 5 based on history, EKG and multiple risk factors, the patient was admitted for observation overnight on the telemetry unit to continue to trend her troponins and to undergo cardiac stress testing later that morning. On the floor, further risk stratification was obtained via laboratories including an A1c, fasting lipid panel, and TSH. Her A1c showed well-controlled diabetes at 6.8, but her total cholesterol was elevated at 241 with an LDL of 161. Therefore, a statin therapy was initiated. The patient's nuclear stress test was noted to be within normal limits; however, her echocardiogram did note heart failure with preserved ejection fraction of 55% to 60% and noted impaired relaxation compatible with diastolic dysfunction. The patient was called following her discharge from the hospital and notified of her echocardiogram results and instructed to follow up with a licensed funeral director as well as a new PCP in [place] as soon as possible. Regarding the patient's hypertensive emergency, by the time the patient arrived to the floor, her blood pressure was still significantly elevated at 202/94. A one time p.r.n. dose of IV hydralazine was given which did lower her blood pressure to 176/85. She was also restarted on p.o. medications with 10 mg of amlodipine and 40 mg of lisinopril given on the date of discharge. By the time of discharge, the patient's blood pressure was much improved, measuring in the 140s/60s-70s and the patient was symptom free and therefore, cleared for discharge. DISPOSITION: Stable. DISCHARGE INSTRUCTIONS: 1. Location: Home. 2. Diet: Heart healthy, low-sodium diet. 3. Activity: As tolerated. No restrictions. 4. Followup: The patient was instructed to follow up with [facility] in [place], [place] or [facility] in [place], [place] to establish care with a primary care provider. A phone call made following her discharge. Also instructed her to follow up with a licensed funeral director of her choice as soon as possible given her new diagnosis of heart failure with preserved ejection fraction. Job ID: [id number]
== END 2019-06-15 16:07 | disposition home or self-care (01) ==
LOC: ERS 07:58 → 2SW 09:38
PROVIDERS: ADMIT Family Medicine; ATTEND Family Medicine
DX: I16.1 Hypertensive emergency (principal); I10 Essential (primary) hypertension; E78.5 Hyperlipidemia, unspecified; E11.9 Type 2 diabetes mellitus without complications; F41.9 Anxiety disorder, unspecified; Z88.0 Allergy status to penicillin; Z88.5 Allergy status to narcotic agent; Z79.84 Long term (current) use of oral hypoglycemic drugs; Z79.899 Other long term (current) drug therapy; F17.210 Nicotine dependence, cigarettes, uncomplicated
CPT/HCPCS: 36415; 36416; 71045; 78452; 80053; 80061; 83036; 84443; 84484; 85025; 85379; 90471; 90662; 93005; 93017; 93306; 94760; 96372; 96374; 96376; A9500; G0008; G0378; J0153; J0360; J1650

== ENCOUNTER 2019-10-12 13:22 | Outpatient (CLI) | payer MEDICARE, BC ==
--- NOTE | 2019-10-12 13:59 | MMO ---
Bilateral MAMMO Bilat Screen [facility]. CLINICAL HISTORY: Patient is 68 years old and is seen for screening. The patient has no family history of breast cancer. The patient has no personal history of cancer. VIEWS: The views performed were: bilateral craniocaudal with tomosynthesis and bilateral mediolateral oblique with tomosynthesis. FILMS COMPARED: The present examination has been compared to a prior imaging study performed at [facility] on 03/27/2017. This study has been interpreted with the assistance of computer-aided detection. MAMMOGRAM FINDINGS: The breasts are almost entirely fat. There are no suspicious masses, suspicious calcifications, or new areas of architectural distortion. IMPRESSION: THERE IS NO MAMMOGRAPHIC EVIDENCE OF MALIGNANCY. A ROUTINE FOLLOW-UP MAMMOGRAM IN 1 YEAR IS RECOMMENDED. THE RESULTS OF THIS EXAM WERE SENT TO THE PATIENT. ACR BI-RADS Category 1 - Negative MAMMOGRAPHY NOTE: 1. A negative mammogram report should not delay a biopsy if a dominant of clinically suspicious mass is present. 2. Approximately 10% to 15% of breast cancers are not detected by mammography. 3. Adenosis and dense breasts may obscure an underlying neoplasm. Reported by: GERRY FRY MD Electonically Signed: [id number]
== END 2019-10-12 13:23 | disposition home or self-care (01) ==
LOC: BICMAMMO 13:22
PROVIDERS: ATTEND Physician Assistant
DX: Z12.31 Encounter for screening mammogram for malignant neoplasm of breast (principal)
CPT/HCPCS: 77063; 77067

== ENCOUNTER 2020-12-01 10:35 | Emergency (ER) | payer BC, MEDICARE ==
[2020-12-01] MEDS ORDERED: Benzonatate 100 MG CAP ONE (11:32)
== END 2020-12-01 11:42 | disposition home or self-care (01) ==
LOC: ERS 10:35
DX: J20.9 Acute bronchitis, unspecified (principal); J01.90 Acute sinusitis, unspecified; B96.89 Other specified bacterial agents as the cause of diseases classified elsewhere; E11.9 Type 2 diabetes mellitus without complications; I10 Essential (primary) hypertension; E78.00 Pure hypercholesterolemia, unspecified; F17.210 Nicotine dependence, cigarettes, uncomplicated; Z79.84 Long term (current) use of oral hypoglycemic drugs; Z79.899 Other long term (current) drug therapy
CPT/HCPCS: 99283

== ENCOUNTER 2021-01-18 03:19 | Emergency (ER) | payer BC, MEDICARE ==
[2021-01-18] MEDS ORDERED: Aspirin Chewable 81 MG TAB ONE (03:32)
[2021-01-18] MEDS ORDERED: cloNIDine 0.1 MG TAB ONE (03:32)
[2021-01-18 03:54] LABS: #Eosinphils 0.3 thou/uL (0.0-0.7); #Lymphocytes 1.9 thou/uL (1.20-3.40); #Monocytes 0.5 thou/uL (0.11-0.59); #Neutrophils 4.5 thou/uL (1.40-6.50); %Basophils 0.7 % (0.0-1.0); %Eosinophils 3.5 % (0.0-10.0); %Lymphocytes 26.5 % (21.0-51.0); %Monocytes 7.5 % (0.0-10.0); %Neutrophils 61.8 % (42.0-75.0); Hemoglobin 13.1 g/dL (12.0-16.0); Mean Corpuscular HGB CONC 33.9 g/dL (32.0-36.0); Mean Corpuscular Hemoglobin 29.1 pg (27.0-31.0); Mean Corpuscular Volume 85.8 fL (78.0-98.0); Platelet Count 347 thou/uL (130-400); White Blood Cell (WBC) Count 7.3 thou/uL (4.8-10.8)
[2021-01-18 04:27] LABS: ALT (SGPT) 29 U/L (8-55); AST (SGOT) 34 U/L (5-34); Alkaline Phosphatase 103 U/L (40-110); Anion Gap 14 mmol/L (10-20); BUN (Urea Nitrogen) 19 mg/dL (9.8-20.1); Bilirubin, Total 0.5 mg/dL (0.2-1.2); Calc. Creatinine Clearance 0 mL/min (70-130); Calcium 10.2 mg/dL (7.8-10.44); Carbon Dioxide 25 mmol/L (23-31); Chloride 104 mmol/L (98-107); Globulin 3.9 g/dL (2.4-3.5); Glucose 155 mg/dL (80-115); Potassium 4.7 mmol/L (3.5-5.1); Protein, Total 7.9 g/dL (5.8-8.1); Sodium 138 mmol/L (136-145)
== END 2021-01-18 05:12 | disposition home or self-care (01) ==
LOC: ERS 03:19
DX: I10 Essential (primary) hypertension (principal); E11.9 Type 2 diabetes mellitus without complications; E78.00 Pure hypercholesterolemia, unspecified; F17.210 Nicotine dependence, cigarettes, uncomplicated; Z79.899 Other long term (current) drug therapy; Z79.82 Long term (current) use of aspirin; Z79.84 Long term (current) use of oral hypoglycemic drugs
CPT/HCPCS: 70450; 71045; 80053; 83880; 84484; 85025; 93005

== ENCOUNTER 2021-11-26 15:46 | Inpatient (IN) | payer BC, MEDICARE ==
[2021-11-26] MEDS ORDERED: Aspirin Chewable 81 MG TAB ONE (17:41)
[2021-11-26 17:59] LABS: ALT (SGPT) 16 U/L (8-55); AST (SGOT) 15 U/L (5-34); Acetaminophen Less than 10.0 mcg/mL (10.0-30.0); Albumin 3.7 g/dL (3.4-4.8); Alcohol Less than 10 mg/dL (Less than 10); Alkaline Phosphatase 83 U/L (40-110); Anion Gap 14 mmol/L (10-20); BUN (Urea Nitrogen) 29 mg/dL (9.8-20.1); Bilirubin, Total 0.2 mg/dL (0.2-1.2); CK (CPK) 70 U/L (29-168); Calc. Creatinine Clearance 0 mL/min (70-130); Calcium 9.4 mg/dL (7.8-10.44); Carbon Dioxide 24 mmol/L (23-31); Chloride 109 mmol/L (98-107); Globulin 3.1 g/dL (2.4-3.5); Glucose 183 mg/dL (80-115); Potassium 4.5 mmol/L (3.5-5.1); Protein, Total 6.8 g/dL (5.8-8.1); Salicylate Less than 8.0 mg/dL (15.0-30.0); Sodium 142 mmol/L (136-145)
[2021-11-26] MEDS ORDERED: hydrALAZINE 20 MG/ML VIAL ONE (19:00)
[2021-11-26 20:06] LABS: Bacteria/HPF None Seen HPF (None Seen); Bilirubin Negative (Negative); Blood, Urine Negative (Negative); Clarity Clear (Clear); Glucose, Urine (Dipstick) Normal (Negative); Ketone, Urine Negative (Negative); Leukocyte Negative Leu/uL (Negative); Nitrite Negative (Negative); Protein, Urine (Dipstick) 50 mg/dL (Neg-Trace); RBC/HPF 0-3 HPF (0-3); Specific Gravity, Urine 1.023 (1.002-1.036); Squamous Epithelial 0-3 HPF (0-3); Urobilinogen Normal mg/dL (Less than 2); WBC/HPF 0-3 HPF (0-3); pH, Urine 5.5 (5.0-9.0)
[2021-11-26 20:10] LABS: Amphetamine Not Detected (NotDetected); Barbiturates Screen Not Detected (NotDetected); Benzodiazepine Screen Not Detected (NotDetected); Cocaine Metabolite Screen Detected (NotDetected); Methadone Not Detected (NotDetected); Methamphetamine Not Detected (NotDetected); Opiate Screen Not Detected (NotDetected); Oxycodone Screen Not Detected (NotDetected); Phencyclidine (PCP) Not Detected (NotDetected); THC/Cannabinoid Screen Not Detected (NotDetected); Tricyclic Screen Not Detected (NotDetected)
[2021-11-26] MEDS ORDERED: Dextrose 50% Abboject 50 ML SYRINGE SLOW IVP PRN (21:28)
[2021-11-26] MEDS ORDERED: Dextrose 5% in Water 1,000 ML IV PRN (21:28)
[2021-11-26 21:35] VITALS: BMI 35.2
[2021-11-27 05:41] LABS: Cardiac Risk 6.4 (Less than 4.5)
[2021-11-27] MEDS ORDERED: Lorazepam 2 MG/ML VIAL SLOW IVP SCH (07:30)
[2021-11-27] MEDS ORDERED: Enoxaparin Sodium 30 MG/0.3 ML SYRINGE SC SCH (09:00)
[2021-11-27] MEDS: Aspirin 81 mg Enteric Coated Tablet PO SCH (09:02)
[2021-11-27] MEDS: Amlodipine 10 MG TAB PO SCH (09:02)
[2021-11-27] MEDS: Atorvastatin Calcium 40 MG TAB PO SCH (09:03)
[2021-11-27] MEDS: HumaLOG 300 UNITS/3 ML VIAL SC PRN (11:14)
[2021-11-27] MEDS: hydrALAZINE 20 MG/ML VIAL SLOW IVP PRN (17:55)
[2021-11-27] MEDS ORDERED: Atorvastatin Calcium 40 MG TAB PO SCH (21:00)
[2021-11-28 05:51] LABS: #Eosinphils 0.2 thou/uL (0.0-0.7); #Lymphocytes 1.6 thou/uL (1.20-3.40); #Monocytes 0.5 thou/uL (0.11-0.59); #Neutrophils 4.3 thou/uL (1.40-6.50); %Basophils 0.6 % (0.0-1.0); %Eosinophils 3.7 % (0.0-10.0); %Lymphocytes 24.5 % (21.0-51.0); %Monocytes 7.3 % (0.0-10.0); %Neutrophils 63.9 % (42.0-75.0); Hemoglobin 13.5 g/dL (12.0-16.0); Mean Corpuscular HGB CONC 32.9 g/dL (32.0-36.0); Mean Corpuscular Hemoglobin 28.7 pg (27.0-31.0); Mean Corpuscular Volume 87.4 fL (78.0-98.0); Mean Platelet Volume 7.3 fL (7.4-10.4); Platelet Count 345 thou/uL (130-400); RBC Distribution Width 12.9 % (11.5-14.5); White Blood Cell (WBC) Count 6.7 thou/uL (4.8-10.8)
[2021-11-28 05:54] LABS: Hemoglobin 13.5 g/dL (12.0-16.0); Platelet Count 342 thou/uL (130-400)
[2021-11-28 06:35] LABS: Anion Gap 17 mmol/L (10-20); BUN (Urea Nitrogen) 20 mg/dL (9.8-20.1); Calc. Creatinine Clearance 75 mL/min (70-130); Calcium 10.2 mg/dL (7.8-10.44); Carbon Dioxide 20 mmol/L (23-31); Chloride 105 mmol/L (98-107); Estimated GFR 58; Glucose 139 mg/dL (80-115); Potassium 4.6 mmol/L (3.5-5.1); Sodium 137 mmol/L (136-145)
[2021-11-28] MEDS: Aspirin 81 mg Enteric Coated Tablet PO SCH (09:49)
[2021-11-28] MEDS: Atorvastatin Calcium 40 MG TAB PO SCH (09:50)
[2021-11-28] MEDS: Amlodipine 10 MG TAB PO SCH (09:50)
[2021-11-28] MEDS: Enoxaparin Sodium 40 MG/0.4 ML SYRINGE SC SCH (09:51)
[2021-11-28] MEDS ORDERED: Acetaminophen 325 MG TAB PO PRN (11:27)
[2021-11-28] MEDS: hydrALAZINE 20 MG/ML VIAL SLOW IVP PRN (11:31)
[2021-11-28] MEDS: HumaLOG 300 UNITS/3 ML VIAL SC PRN (11:32)
[2021-11-29] MEDS: hydrALAZINE 20 MG/ML VIAL SLOW IVP PRN (01:41)
[2021-11-29 05:20] LABS: #Eosinphils 0.2 thou/uL (0.0-0.7); #Lymphocytes 1.9 thou/uL (1.20-3.40); #Monocytes 0.5 thou/uL (0.11-0.59); #Neutrophils 4.7 thou/uL (1.40-6.50); %Basophils 0.6 % (0.0-1.0); %Eosinophils 2.5 % (0.0-10.0); %Lymphocytes 25.4 % (21.0-51.0); %Monocytes 6.8 % (0.0-10.0); %Neutrophils 64.7 % (42.0-75.0); Hemoglobin 13.8 g/dL (12.0-16.0); Mean Corpuscular HGB CONC 31.9 g/dL (32.0-36.0); Mean Corpuscular Hemoglobin 27.8 pg (27.0-31.0); Mean Corpuscular Volume 87.2 fL (78.0-98.0); Mean Platelet Volume 7.3 fL (7.4-10.4); Platelet Count 337 thou/uL (130-400); Red Blood Cell (RBC) Count 4.97 mill/uL (4.20-5.40); White Blood Cell (WBC) Count 7.3 thou/uL (4.8-10.8)
[2021-11-29 05:38] LABS: Anion Gap 16 mmol/L (10-20); BUN (Urea Nitrogen) 24 mg/dL (9.8-20.1); Calc. Creatinine Clearance 71 mL/min (70-130); Calcium 10.3 mg/dL (7.8-10.44); Carbon Dioxide 21 mmol/L (23-31); Chloride 105 mmol/L (98-107); Estimated GFR 54; Glucose 152 mg/dL (80-115); Potassium 4.9 mmol/L (3.5-5.1); Sodium 137 mmol/L (136-145)
[2021-11-29] MEDS: HumaLOG 300 UNITS/3 ML VIAL SC PRN ×2 (05:46→12:40)
[2021-11-29] MEDS: Amlodipine 10 MG TAB PO SCH (08:32)
[2021-11-29] MEDS: Aspirin 81 mg Enteric Coated Tablet PO SCH (08:33)
[2021-11-29] MEDS: Atorvastatin Calcium 40 MG TAB PO SCH (08:33)
[2021-11-29] MEDS: Enoxaparin Sodium 40 MG/0.4 ML SYRINGE SC SCH (08:33)
[2021-11-29] MEDS ORDERED: Bisacodyl 5 MG TAB PO PRN (11:15)
[2021-11-29] MEDS ORDERED: HumaLOG 300 UNITS/3 ML VIAL SC PRN (21:45)
[2021-11-30] MEDS: Aspirin 81 mg Enteric Coated Tablet PO SCH (08:43)
[2021-11-30] MEDS: Amlodipine 10 MG TAB PO SCH (08:43)
[2021-11-30] MEDS: Atorvastatin Calcium 40 MG TAB PO SCH (08:43)
[2021-11-30] MEDS: Enoxaparin Sodium 40 MG/0.4 ML SYRINGE SC SCH (08:44)
[2021-11-30] MEDS: HumaLOG 300 UNITS/3 ML VIAL SC PRN (11:26)
[2021-11-30 15:52] VITALS: BP 175/81; TEMP 97.8
== END 2021-11-30 19:46 | DRG 69 ==
LOC: ERS 15:46 → NEURO 17:41
PROVIDERS: ADMIT Internal Medicine; ATTEND Internal Medicine
DX: G45.9 Transient cerebral ischemic attack, unspecified (principal); N17.9 Acute kidney failure, unspecified; Z20.822 Contact with and (suspected) exposure to COVID-19; E11.9 Type 2 diabetes mellitus without complications; I10 Essential (primary) hypertension; F40.240 Claustrophobia; E78.00 Pure hypercholesterolemia, unspecified; F41.9 Anxiety disorder, unspecified; F32.A Depression, unspecified; E78.5 Hyperlipidemia, unspecified; F17.210 Nicotine dependence, cigarettes, uncomplicated; F14.10 Cocaine abuse, uncomplicated; E86.0 Dehydration; Z53.29 Procedure and treatment not carried out because of patient's decision for other reasons; Z88.5 Allergy status to narcotic agent; Z88.0 Allergy status to penicillin; Z90.710 Acquired absence of both cervix and uterus; Z79.899 Other long term (current) drug therapy; Z90.89 Acquired absence of other organs; Z71.51 Drug abuse counseling and surveillance of drug abuser; Z71.6 Tobacco abuse counseling; Z79.84 Long term (current) use of oral hypoglycemic drugs
CPT/HCPCS: 36415; 36416; 70450; 71045; 80048; 80053; 80061; 80306; 80307; 81003; 81015; 82550; 83690; 84443; 84484; 85014; 85018; 85025; 85049; 93005; 93306; 93880; 96374; J0360; J1650; J1815; J2060; U0003; U0005